=== PATIENT | male | born 1955 | race Caucasian/White ===

== ENCOUNTER 2020-10-17 13:52 | Outpatient (CLI) | payer OTHER, SELFPAY | END 2020-10-17 13:53 | disposition home or self-care (01) | LOC: ANHBWCAUD 13:53 | PROVIDERS: PCP Internal Medicine Geriatric Medicine; Visit Provider Otolaryngology | DX: H90.3 Sensorineural hearing loss, bilateral (principal) | CPT/HCPCS: 92557; 92567 ==